=== PATIENT | male | born 1930 | race Caucasian/White ===

== ENCOUNTER 2016-09-30 09:07 | Observation (INO) | payer MEDICARE, BC ==
[~2016-09-30 09:07] MED LIST: ADULT ASPIRIN81 MG; ASPIR 8181 M1 PO; ASPIR 8181 MG PO; ASPIRIN81 M1 PO; BENADRYL25 M3; BENADRYL25 M3 PO; BYSTOLIC2.5 MG; CEFDINIR300 M1 PO; COREG6.25 MG; COZAAR50 M1 PO; CRESTOR5 MG; CULTURELLE1 EAC2 PO; DARVOCET-N 1001 TAB PO; DOXYCYCLINE HY100 M3 PO; FISH OIL 1,2001 CAP; FISH OIL 1,2001 CAP PO; FISH OIL 1,2001 EAC5 PO; FLOMAX0.4 M1 PO; FLONASE ALLERG9.9 ML; FLOVENT RO50 MCG/DIS; FLUTICASONE PRO16 G1; FLUTICASONE PRO16 GM NS; GABAPENTIN300 M1 PO; GABAPENTIN300 MG PO; GLUCOPHAGE1000 M1 PO; HYDROCHLOROTH12.5 MG; HYDROCHLOROTH12.5 MG PO; HYDROCHLOROTHIA25 M1 PO; HYDROCHLOROTHIA25 MG PO; IMDUR30 MG; IMDUR30 MG PO; IPRAT-ALBUT 0.5-3 ML INH; ISORDIL5 MG; ISOSORBIDE MONO30 M4 PO; LIDODERM700 MG TD; LISINOPRIL2.5 MG; LISINOPRIL40 M1 PO; LISINOPRIL40 MG; LISINOPRIL40 MG PO; LOSARTAN POTAS100 M1 PO; LYRICA25 MG; LYRICA50 MG; METFORMIN HCL500 M2 PO; MIRALAX17 G2 PO; MUCINEX1200 MG PO; MUCINEX600 M1 PO; NAPROXEN500 M1 PO; NEURONTIN300 M1 PO; NITROSTAT0.4 MG; NORCO 5-325 TA1 EACH PO; NORVASC5 M1 PO; NORVASC5 M2 PO; OMEPRAZOLE20 M3 PO; OMEPRAZOLE20 M4 PO; PAIN RELIEF EX500 MG PO; PRAVACHOL20 M1 PO; PRAVACHOL20 MG PO; PRAVACHOL40 M1 PO; PRILOSEC20 MG; PRILOSEC20 MG PO; PRINIVIL5 M1 PO; PROAIR HFA8.5 GM; PROAIR RESPICL90 MCG INH; RANEXA500 MG PO; SEA-OMEGA 30 C1 EACH PO; SENNA S TABLET1 EACH PO; SINEMET 25-1001 EAC1 PO; SINGULAIR10 M1 PO; TESSALON PERLE100 M1 PO; TESSALON PERLE100 MG PO; TRAMADOL HCL50 MG; TRAMADOL HCL50 MG PO; TRICOR160 MG; TYLENOL EXTRA500 M1 PO; TYLENOL PM EX-1 EAC1 PO; ULTRAM50 M1 PO; VITAMIN D2000 UNI1 PO; VITAMIN D31000 UNI4 PO; XALATAN2.5 M1 OP; XALATAN2.5 ML; XALATAN2.5 ML OP; ZOLOFT25 MG; ZOLOFT25 MG PO; ZOLOFT50 M1 PO; ZOLOFT50 MG PO; [UNRECOGNIZED DRUG - OTHER]
[2016-09-30] MEDS ORDERED: NEURONTIN300 M1 PO (09:51)
[2016-09-30] MEDS ORDERED: OMEPRAZOLE20 M3 PO (09:51)
[2016-09-30] MEDS ORDERED: ZOLOFT50 M1 PO (09:51)
[2016-09-30] MEDS ORDERED: ISOSORBIDE MONO30 M4 PO (09:51)
[2016-09-30] MEDS ORDERED: OMEGA FISH O PO (09:52)
[2016-09-30] MEDS ORDERED: TYLENOL EXTRA500 M1 PO (09:53)
[2016-09-30] MEDS ORDERED: SINGULAIR10 M1 PO (09:53)
[2016-09-30] MEDS ORDERED: MUCINEX600 M1 PO (09:53)
[2016-09-30] MEDS ORDERED: VITAMIN D31000 UNI3 PO (09:53)
[2016-09-30] MEDS ORDERED: GLUCOPHAGE1000 M1 PO (09:53)
[2016-09-30] MEDS ORDERED: PRINIVIL5 M1 PO (09:54)
[2016-09-30] MEDS ORDERED: ASPIRIN325 M3 PO (09:54)
[2016-09-30] MEDS ORDERED: COZAAR50 M1 PO (09:54)
[2016-09-30] MEDS ORDERED: SINEMET 25-1001 EAC1 PO (09:54)
[2016-09-30] MEDS ORDERED: MIRALAX17 G2 PO (09:55)
[2016-09-30] MEDS ORDERED: FLONASE ALLERG9.9 ML (09:55)
[2016-09-30] MEDS ORDERED: PROAIR HFA8.5 GM INH (09:55)
[2016-09-30] MEDS ORDERED: SENNA S TABLET1 EACH PO (09:56)
[2016-09-30 09:57] LABS: BASO % 0.8 % (0-2); BASO ABSOLUTE COUNT 0.1 tho/cmm (0.0-0.2); EOS % 3.4 % (0-7); EOSINOPHIL ABSOLUTE COUNT 0.2 tho/cmm (0.0-0.7); HCT-HEMATOCRIT 39.1 % (36.0-53.5); HGB-HEMOGLOBIN 12.8 gm/dl (13.5-17.0); IMMATURE GRANULOCYTES ABSOLUTE 0.01 tho/cmm (0-0.03); IMMATURE GRANULOCYTES PERCENT 0.2 % (0-0.3); LYMPH % 22.9 % (20-45); LYMPH ABSOLUTE COUNT 1.5 tho/cmm (0.8-4.5); MCH (MEAN CORPUSCULAR HGB) 29.5 pg (28.0-32.0); MCHC MEAN CORPUSCULAR HGB CONC 32.7 % (32.0-36.0); MCV (MEAN CELL VOLUME) 90.1 fl (82.0-96.0); MEAN PLATELET VOLUME 10.8 cmc (9.4-12.4); MONO % 8.5 % (0-12); MONOCYTE ABSOLUTE COUNT 0.6 tho/cmm (0.0-1.2); NEUTROPHIL ABSOLUTE COUNT 4.2 tho/cmm (1.6-8.0); NEUTROPHIL-AUTOMATED 4.2 tho/cmm (1.6-8.0); NEUTROPHILS % 64.2 % (40-80); PLATELET COUNT 196 tho/cmm (150-450); RED BLOOD COUNT 4.34 mil/cmm (4.40-5.70); RED CELL DISTRIBUTION WIDTH 15.2 % (12.4-16.4); WHITE BLOOD COUNT 6.6 tho/cmm (4.0-10.0)
[2016-09-30] MEDS ORDERED: HYDROCODON-ACE1 EA16 PO (09:57)
[2016-09-30 10:13] LABS: ALB/GLOB RATIO 0.9 (0.8-2.0); ALBUMIN 3.5 g/dl (3.5-5.0); ALKALINE PHOSPHATASE 38 U/L (33-138); ANION GAP 10 mmol/L (0-20); AST/SGOT 13 U/L (10-40); BILIRUBIN,TOTAL 0.6 mg/dl (0.0-1.5); BLOOD UREA NITROGEN 19 mg/dl (6-24); CALCIUM 9.4 mg/dl (8.5-10.5); CARBON DIOXIDE-VENOUS 29 mmol/L (22-32); CHLORIDE 106 mmol/l (96-110); CREATININE 1.01 mg/dl (0.60-1.30); GLUCOSE 112 mg/dL (70-110); MAGNESIUM 1.5 mg/dl (1.3-2.6); SODIUM 141 mmol/L (135-145); eGFR VALUE FOR BLACK 77 mL/Min
[2016-09-30 10:34] LABS: ALT/SGPT <10 U/L (12-78)
[2016-09-30 11:15] LABS: URINE BILIRUBIN NEGATIVE (NEG); URINE BLOOD SMALL (NEG); URINE GLUCOSE (UA) NEGATIVE (NEG); URINE KETONE SMALL (NEG); URINE LEUKOCYTE ESTERASE POSITIVE (NEG); URINE NITRITE NEGATIVE (NEG); URINE PROTEIN MODERATE (NEG)
[2016-09-30 11:16] LABS: URINE APPEARANCE HAZY; URINE COLOR YELLOW
[2016-09-30 11:29] LABS: URINE WBC 20-25 /[HPF] (0-5)
[2016-09-30 11:30] LABS: URINE BACTERIA 1+; URINE MUCUS 1+
[2016-10-01 06:09] LABS: BLOOD UREA NITROGEN 16 mg/dl (6-24); CHLORIDE 106 mmol/l (96-110); POTASSIUM 3.5 mmol/L (3.7-5.1); SODIUM 142 mmol/L (135-145)
[2016-10-01 06:11] LABS: ANION GAP 14 mmol/L (0-20); CALCIUM 8.9 mg/dl (8.5-10.5); CARBON DIOXIDE-VENOUS 26 mmol/L (22-32); CREATININE 0.76 mg/dl (0.60-1.30); GLUCOSE 114 mg/dL (70-110); eGFR VALUE FOR BLACK >90 mL/Min
== END 2016-10-02 11:05 ==
LOC: EDMED 09:07 → EMR2 16:46 → CAR1 16:54
PROVIDERS: Emergency Medicine; ADMIT Hospitalist
DX: R53.1 Weakness (principal); I12.9 Hypertensive chronic kidney disease with stage 1 through stage 4 chronic kidney disease, or unspecified chronic kidney disease; E11.22 Type 2 diabetes mellitus with diabetic chronic kidney disease; N18.3 Chronic kidney disease, stage 3 (moderate); R19.7 Diarrhea, unspecified; I25.10 Atherosclerotic heart disease of native coronary artery without angina pectoris; G89.29 Other chronic pain; M54.5 Low back pain; G47.33 Obstructive sleep apnea (adult) (pediatric); J45.909 Unspecified asthma, uncomplicated; G20 Parkinson's disease; G91.2 (Idiopathic) normal pressure hydrocephalus; H40.9 Unspecified glaucoma; M41.9 Scoliosis, unspecified; E78.5 Hyperlipidemia, unspecified; D66 Hereditary factor VIII deficiency; M79.675 Pain in left toe(s); E89.0 Postprocedural hypothyroidism; Z79.82 Long term (current) use of aspirin; Z79.84 Long term (current) use of oral hypoglycemic drugs; Z79.899 Other long term (current) drug therapy; Z88.8 Allergy status to other drugs, medicaments and biological substances; Z86.73 Personal history of transient ischemic attack (TIA), and cerebral infarction without residual deficits; Z86.718 Personal history of other venous thrombosis and embolism; Z86.711 Personal history of pulmonary embolism; Z90.49 Acquired absence of other specified parts of digestive tract; Z90.79 Acquired absence of other genital organ(s); Z90.89 Acquired absence of other organs; Z98.890 Other specified postprocedural states; W18.30XA Fall on same level, unspecified, initial encounter
CPT/HCPCS: G0378; G8978-GP-CK; G8979-GP-CK; G8980-GP-CK; G8987-GO-CK; G8988-GO-CJ; G8989-GO-CK; J7030

== ENCOUNTER 2016-12-19 08:15 | Inpatient (IN) | payer MEDICARE, BC ==
[~2016-12-19 08:15] MED LIST changes: +ASPIRIN325 M3 PO; +HYDROCODON-ACE1 EA16 PO; +OMEGA FISH O PO; +PROAIR HFA8.5 GM INH; +VITAMIN D31000 UNI3 PO
[2016-12-19 09:02] LABS: BASO % 0.3 % (0-2); EOS % 0.5 % (0-7); HCT-HEMATOCRIT 41.7 % (36.0-53.5); IMMATURE GRANULOCYTES ABSOLUTE 0.01 tho/cmm (0-0.03); IMMATURE GRANULOCYTES PERCENT 0.1 % (0-0.3); LYMPH % 10.2 % (20-45); LYMPH ABSOLUTE COUNT 0.8 tho/cmm (0.8-4.5); MCH (MEAN CORPUSCULAR HGB) 30.2 pg (28.0-32.0); MCHC MEAN CORPUSCULAR HGB CONC 33.6 % (32.0-36.0); MCV (MEAN CELL VOLUME) 89.9 fl (82.0-96.0); MONO % 2.8 % (0-12); MONOCYTE ABSOLUTE COUNT 0.2 tho/cmm (0.0-1.2); NEUTROPHIL ABSOLUTE COUNT 6.5 tho/cmm (1.6-8.0); NEUTROPHIL-AUTOMATED 6.5 tho/cmm (1.6-8.0); NEUTROPHILS % 86.1 % (40-80); PLATELET COUNT 172 tho/cmm (150-450); RED BLOOD COUNT 4.64 mil/cmm (4.40-5.70); RED CELL DISTRIBUTION WIDTH 14.8 % (12.4-16.4); WHITE BLOOD COUNT 7.6 tho/cmm (4.0-10.0)
[2016-12-19 09:14] LABS: ALB/GLOB RATIO 0.9 (0.8-2.0); ALBUMIN 3.8 g/dl (3.5-5.0); ALKALINE PHOSPHATASE 36 U/L (33-138); ALT/SGPT 11 U/L (12-78); ANION GAP 15 mmol/L (0-20); AST/SGOT 16 U/L (10-40); BILIRUBIN,TOTAL 0.7 mg/dl (0.0-1.5); BLOOD UREA NITROGEN 23 mg/dl (6-24); CALCIUM 9.4 mg/dl (8.5-10.5); CARBON DIOXIDE-VENOUS 20 mmol/L (22-32); CHLORIDE 108 mmol/l (96-110); CREATININE 1.15 mg/dl (0.60-1.30); GLUCOSE 179 mg/dL (70-110); POTASSIUM 4.4 mmol/L (3.7-5.1); SODIUM 139 mmol/L (135-145); eGFR VALUE FOR BLACK 66 mL/Min
[2016-12-19] MEDS ORDERED: OMEPRAZOLE20 M3 PO (09:14)
[2016-12-19] MEDS ORDERED: ISOSORBIDE MONO30 M4 PO (09:15)
[2016-12-19] MEDS ORDERED: NEURONTIN300 M1 PO (09:15)
[2016-12-19] MEDS ORDERED: ZOLOFT50 M1 PO (09:15)
[2016-12-19] MEDS ORDERED: GLUCOPHAGE1000 M1 PO (09:16)
[2016-12-19] MEDS ORDERED: VITAMIN D31000 UNI4 PO (09:16)
[2016-12-19] MEDS ORDERED: SINGULAIR10 M1 PO (09:16)
[2016-12-19] MEDS ORDERED: SEA-OMEGA 30 C1 EACH PO (09:16)
[2016-12-19] MEDS ORDERED: MUCINEX600 M1 PO (09:17)
[2016-12-19] MEDS ORDERED: COZAAR50 M1 PO (09:17)
[2016-12-19] MEDS ORDERED: TYLENOL EXTRA500 M1 PO (09:17)
[2016-12-19] MEDS ORDERED: PRINIVIL5 M1 PO (09:18)
[2016-12-19] MEDS ORDERED: ASPIRIN325 M3 PO (09:18)
[2016-12-19] MEDS ORDERED: SINEMET 25-2501 EAC1 PO (09:19)
[2016-12-19] MEDS ORDERED: FLONASE ALLERG9.9 ML (09:21)
[2016-12-19] MEDS ORDERED: PROAIR HFA8.5 GM INH (09:21)
[2016-12-19] MEDS ORDERED: MIRALAX17 G2 PO (09:21)
[2016-12-19 09:22] LABS: ABG CO2 ARTERIAL 21 mmol/L (21-27); ARTERIAL BLD GAS O2 SATURATION 96 % (95-98); ARTERIAL BLOOD GAS PCO2 31 mmHg (32-45); ARTERIAL PO2 76 mmHg (70-100); BICARBONATE 20 mmol/L (21-28); BLOOD GAS BASE EXCESS -3 mM/L (-/+3); PH 7.42 Units (7.35-7.45)
[2016-12-19] MEDS ORDERED: SENNA S TABLET1 EACH PO (09:23)
[2016-12-19] MEDS ORDERED: NORCO 5-325 TA1 EACH PO (09:23)
[2016-12-19 09:31] LABS: URINE BILIRUBIN NEGATIVE (NEG); URINE BLOOD MODERATE (NEG); URINE GLUCOSE (UA) NEGATIVE (NEG); URINE KETONE NEGATIVE (NEG); URINE LEUKOCYTE ESTERASE NEGATIVE (NEG); URINE NITRITE NEGATIVE (NEG); URINE PROTEIN MODERATE (NEG)
[2016-12-19 09:33] LABS: URINE APPEARANCE CLEAR; URINE COLOR PALE YELLOW
[2016-12-19 09:36] LABS: URINE AMORPHOUS 1+; URINE EPITHELIAL CELLS 0 /[HPF] (0-10); URINE RBC 0-2 /[HPF] (0-5); URINE WBC 0 /[HPF] (0-5)
[2016-12-20 05:30] LABS: BASO % 0.2 % (0-2); EOS % 0.2 % (0-7); HGB-HEMOGLOBIN 10.1 gm/dl (13.5-17.0); IMMATURE GRANULOCYTES ABSOLUTE 0.02 tho/cmm (0-0.03); IMMATURE GRANULOCYTES PERCENT 0.2 % (0-0.3); LYMPH % 13.2 % (20-45); LYMPH ABSOLUTE COUNT 1.3 tho/cmm (0.8-4.5); MCH (MEAN CORPUSCULAR HGB) 29.3 pg (28.0-32.0); MCHC MEAN CORPUSCULAR HGB CONC 32.6 % (32.0-36.0); MCV (MEAN CELL VOLUME) 89.9 fl (82.0-96.0); MEAN PLATELET VOLUME 11.2 cmc (9.4-12.4); MONO % 8.3 % (0-12); MONOCYTE ABSOLUTE COUNT 0.8 tho/cmm (0.0-1.2); NEUTROPHIL ABSOLUTE COUNT 7.8 tho/cmm (1.6-8.0); NEUTROPHIL-AUTOMATED 7.8 tho/cmm (1.6-8.0); NEUTROPHILS % 77.9 % (40-80); PLATELET COUNT 129 tho/cmm (150-450); RED BLOOD COUNT 3.45 mil/cmm (4.40-5.70); RED CELL DISTRIBUTION WIDTH 15.1 % (12.4-16.4)
[2016-12-20 05:42] LABS: ANION GAP 14 mmol/L (0-20); BLOOD UREA NITROGEN 20 mg/dl (6-24); CALCIUM 7.9 mg/dl (8.5-10.5); CARBON DIOXIDE-VENOUS 22 mmol/L (22-32); CHLORIDE 111 mmol/l (96-110); CREATININE 0.88 mg/dl (0.60-1.30); GLUCOSE 102 mg/dL (70-110); POTASSIUM 4.2 mmol/L (3.7-5.1); SODIUM 143 mmol/L (135-145); eGFR VALUE FOR BLACK 90 mL/Min
--- NOTE | 2016-12-20 09:08 | NUR ---
DEFERRED PT 0400 VITALS AND ASSESSMENT DUE TO SILO MAN AND EVENTUAL CODE IN ANOTHER ROOM. PT VSS, NO S/S OF DISTRESS. RESTING PEACEFULLY.
[2016-12-22 05:32] LABS: HGB-HEMOGLOBIN 10.6 gm/dl (13.5-17.0); PLATELET COUNT 158 tho/cmm (150-450)
[2016-12-23 05:24] LABS: BASO % 0.4 % (0-2); EOS % 1.6 % (0-7); EOSINOPHIL ABSOLUTE COUNT 0.1 tho/cmm (0.0-0.7); HCT-HEMATOCRIT 32.7 % (36.0-53.5); HGB-HEMOGLOBIN 10.8 gm/dl (13.5-17.0); IMMATURE GRANULOCYTES ABSOLUTE 0.01 tho/cmm (0-0.03); IMMATURE GRANULOCYTES PERCENT 0.2 % (0-0.3); LYMPH % 14.2 % (20-45); LYMPH ABSOLUTE COUNT 0.8 tho/cmm (0.8-4.5); MCH (MEAN CORPUSCULAR HGB) 29.1 pg (28.0-32.0); MCV (MEAN CELL VOLUME) 88.1 fl (82.0-96.0); MEAN PLATELET VOLUME 10.7 cmc (9.4-12.4); MONO % 11.2 % (0-12); MONOCYTE ABSOLUTE COUNT 0.6 tho/cmm (0.0-1.2); NEUTROPHIL ABSOLUTE COUNT 4.1 tho/cmm (1.6-8.0); NEUTROPHIL-AUTOMATED 4.1 tho/cmm (1.6-8.0); NEUTROPHILS % 72.4 % (40-80); PLATELET COUNT 157 tho/cmm (150-450); RED BLOOD COUNT 3.71 mil/cmm (4.40-5.70); RED CELL DISTRIBUTION WIDTH 15.2 % (12.4-16.4); WHITE BLOOD COUNT 5.7 tho/cmm (4.0-10.0)
[2016-12-23 05:39] LABS: ANION GAP 12 mmol/L (0-20); BLOOD UREA NITROGEN 9 mg/dl (6-24); CARBON DIOXIDE-VENOUS 27 mmol/L (22-32); CHLORIDE 104 mmol/l (96-110); CREATININE 0.89 mg/dl (0.60-1.30); GLUCOSE 179 mg/dL (70-110); POTASSIUM 3.7 mmol/L (3.7-5.1); SODIUM 139 mmol/L (135-145); eGFR VALUE FOR BLACK 89 mL/Min
[2016-12-24 04:31] LABS: BASO % 0.6 % (0-2); EOS % 3.8 % (0-7); EOSINOPHIL ABSOLUTE COUNT 0.2 tho/cmm (0.0-0.7); HCT-HEMATOCRIT 31.6 % (36.0-53.5); HGB-HEMOGLOBIN 10.3 gm/dl (13.5-17.0); IMMATURE GRANULOCYTES ABSOLUTE 0.01 tho/cmm (0-0.03); IMMATURE GRANULOCYTES PERCENT 0.2 % (0-0.3); LYMPH % 20.5 % (20-45); LYMPH ABSOLUTE COUNT 1.1 tho/cmm (0.8-4.5); MCH (MEAN CORPUSCULAR HGB) 28.8 pg (28.0-32.0); MCHC MEAN CORPUSCULAR HGB CONC 32.6 % (32.0-36.0); MCV (MEAN CELL VOLUME) 88.3 fl (82.0-96.0); MEAN PLATELET VOLUME 10.6 cmc (9.4-12.4); MONOCYTE ABSOLUTE COUNT 0.7 tho/cmm (0.0-1.2); NEUTROPHIL ABSOLUTE COUNT 3.2 tho/cmm (1.6-8.0); NEUTROPHIL-AUTOMATED 3.2 tho/cmm (1.6-8.0); NEUTROPHILS % 61.9 % (40-80); PLATELET COUNT 153 tho/cmm (150-450); RED BLOOD COUNT 3.58 mil/cmm (4.40-5.70); WHITE BLOOD COUNT 5.2 tho/cmm (4.0-10.0)
[2016-12-24 05:33] LABS: PROCALCITONIN 4.76 ng/ml (0.05-0.09)
[2016-12-25 04:38] LABS: BASO % 0.8 % (0-2); EOS % 6.5 % (0-7); EOSINOPHIL ABSOLUTE COUNT 0.3 tho/cmm (0.0-0.7); HCT-HEMATOCRIT 30.5 % (36.0-53.5); HGB-HEMOGLOBIN 10.1 gm/dl (13.5-17.0); IMMATURE GRANULOCYTES ABSOLUTE 0.02 tho/cmm (0-0.03); IMMATURE GRANULOCYTES PERCENT 0.4 % (0-0.3); LYMPH % 19.9 % (20-45); MCH (MEAN CORPUSCULAR HGB) 29.2 pg (28.0-32.0); MCHC MEAN CORPUSCULAR HGB CONC 33.1 % (32.0-36.0); MCV (MEAN CELL VOLUME) 88.2 fl (82.0-96.0); MEAN PLATELET VOLUME 10.5 cmc (9.4-12.4); MONO % 13.4 % (0-12); MONOCYTE ABSOLUTE COUNT 0.7 tho/cmm (0.0-1.2); PLATELET COUNT 170 tho/cmm (150-450); RED BLOOD COUNT 3.46 mil/cmm (4.40-5.70); RED CELL DISTRIBUTION WIDTH 15.2 % (12.4-16.4); WHITE BLOOD COUNT 5.1 tho/cmm (4.0-10.0)
[2016-12-25 05:10] LABS: ANION GAP 13 mmol/L (0-20); BLOOD UREA NITROGEN 10 mg/dl (6-24); CALCIUM 8.9 mg/dl (8.5-10.5); CARBON DIOXIDE-VENOUS 26 mmol/L (22-32); CHLORIDE 103 mmol/l (96-110); CREATININE 0.99 mg/dl (0.60-1.30); GLUCOSE 150 mg/dL (70-110); POTASSIUM 3.3 mmol/L (3.7-5.1); SODIUM 139 mmol/L (135-145); eGFR VALUE FOR BLACK 79 mL/Min
[2016-12-25 06:40] LABS: PROCALCITONIN 2.96 ng/ml (0.05-0.09)
[2016-12-26 04:40] LABS: ANION GAP 12 mmol/L (0-20); BLOOD UREA NITROGEN 9 mg/dl (6-24); CALCIUM 9.3 mg/dl (8.5-10.5); CARBON DIOXIDE-VENOUS 28 mmol/L (22-32); CHLORIDE 104 mmol/l (96-110); CREATININE 0.99 mg/dl (0.60-1.30); GLUCOSE 131 mg/dL (70-110); POTASSIUM 3.6 mmol/L (3.7-5.1); SODIUM 140 mmol/L (135-145); eGFR VALUE FOR BLACK 79 mL/Min
== END 2016-12-26 16:15 | DRG 871 ==
LOC: EDMED 08:15 → EMR2 11:02 → PCUB 12:07 → 5WE 12-23 22:27
PROVIDERS: Emergency Medicine; Hospitalist; Internal Medicine; Internal Medicine Pulmonary Disease; Nurse Practitioner Acute Care; ADMIT Hospitalist
DX: A41.9 Sepsis, unspecified organism (principal); J96.21 Acute and chronic respiratory failure with hypoxia; J69.0 Pneumonitis due to inhalation of food and vomit; K52.1 Toxic gastroenteritis and colitis; R65.20 Severe sepsis without septic shock; I25.10 Atherosclerotic heart disease of native coronary artery without angina pectoris; G89.29 Other chronic pain; I12.9 Hypertensive chronic kidney disease with stage 1 through stage 4 chronic kidney disease, or unspecified chronic kidney disease; E11.22 Type 2 diabetes mellitus with diabetic chronic kidney disease; N18.9 Chronic kidney disease, unspecified; G20 Parkinson's disease; E03.9 Hypothyroidism, unspecified; R13.10 Dysphagia, unspecified; T36.95XA Adverse effect of unspecified systemic antibiotic, initial encounter; E87.6 Hypokalemia; R33.9 Retention of urine, unspecified; R26.9 Unspecified abnormalities of gait and mobility; Z79.82 Long term (current) use of aspirin; M54.9 Dorsalgia, unspecified; Z66 Do not resuscitate; Z86.73 Personal history of transient ischemic attack (TIA), and cerebral infarction without residual deficits; Z86.718 Personal history of other venous thrombosis and embolism; Z86.711 Personal history of pulmonary embolism; G47.33 Obstructive sleep apnea (adult) (pediatric); E78.5 Hyperlipidemia, unspecified; Z91.040 Latex allergy status; Z79.4 Long term (current) use of insulin; J44.9 Chronic obstructive pulmonary disease, unspecified; Z53.9 Procedure and treatment not carried out, unspecified reason
CPT/HCPCS: G8996-GN-CK; G8997-GN-CK; G8998-GN-CK; J1650; J1815; J1940; J1956; J2270; J2405; J2543; J3370; J7030